=== PATIENT | male | born 1995 | race Caucasian/White ===

== ENCOUNTER 2021-08-22 17:45 | Emergency (ER) | payer BC, OTHER ==
[~2021-08-22] VITALS: Ht 167.6 cm; Wt 68.9 kg
[2021-08-22 18:34] VITALS: BP 128/89
[2021-08-22] MEDS ORDERED: KETOROLAC 30 MG/ML VIAL IM ONE (19:35)
--- NOTE | 2021-08-22 19:39 | NUR ---
PT MEDICATED FOR PAIN PER ORDER. PT PLACED BACK IN LOBBY.
[2021-08-23 00:11] VITALS: BP 128/89
--- NOTE | 2021-08-23 00:11 | NUR ---
Patient discharged with v/s stable. Written and verbal after care instructions given and explained. Patient verbalized understanding. Ambulatory with steady gait. All questions addressed prior to discharge. Advised to follow up with PMD.
== END 2021-08-23 00:11 | disposition home or self-care (01) ==
LOC: MED 17:45
DX: M54.50 Low back pain, unspecified (principal)
CPT/HCPCS: 81002; 96372; 99283; J1885